=== PATIENT | female | born 1990 | race Hispanic/Latino ===

== ENCOUNTER 2018-03-26 09:44 | Inpatient (IN) | payer MEDICAID ==
--- NOTE | 2018-03-25 09:19 | History and Physical Report ---
History of Present Illness Date of examination: 03/20/18 Date of admission: 03/26/2018 Chief complaint: here for c/s History of present illness: Pt presents for scheduled repeat c/s. All risk, benefits, and alternatives were d/w pt and questions were addressed and answered. EDC Confirmation: 04/02/2018 Gestational Age: 12 1/7 weeks Past History : 2 Term Births: 1 Living Children: 1 Para: 1 Prev : 1 Aborta: 0 # 1 Delivery date: 09/2016 Weeks Gestation: 40 labor: no Delivery type: Hours of labor: 72h Delivery location: [facility] [place] Infant Sex: Female weight: 8#11 Comments: 3 day IOL, c/s 8cm for FTP Past Medical History: Negative Past Medical History Past Surgical History: Past Medical History Surgery (Non-manager inventory control): Abnormal PAP: negative HERBER Exposure: negative Infertility: negative Uterine Anomaly: negative Uterine Surgery (not C/S): negative Other Gynecologic Problems: negative Family Hx: MGM - bipolar, of haemochromatosis Social Hx: , works as teacher no ETOH/Drugs/Smoking Infection History Hx of STD: none HIV Risk Eval: no Hepatitis B Risk Eval: low risk Personal hx. of genital herpes: no Partner hx. of genital herpes: no Rash, Viral, or Febrile illness since last LMP? no Varicella/Chicken Pox Status: Previous Disease Genetic History Congenital Heart Defect: Mom: no Dad: no Bobbi Disease: Mom: no Dad: no Thalassemia Mom: no Dad: no Neural Tube Defect Mom: no Dad: no Down's Syndrome Mom: no Dad: no Khari-Sachs Mom: no Dad: no Sickle Cell Disease/Trait Mom: no Dad: no Hemophilia Mom: no Dad: no Muscular Dystrophy Mom: no Dad: no Cystic Fibrosis Mom: no Dad: no [place] Chorea Mom: no Dad: no Mental Retardation Mom: no Dad: no Fragile X Mom: no Dad: no Other Genetic/Chromosomal Disorder Mom: no Dad: no Child w/other defect Mom: no Dad: no Enviromental Exposures Xray Exposure: no Medication, drug, or alcohol use since LMP: no Chemical/Other Exposure: no Exposure to Cat Liter: no Hx of Parvovirus (Fifth Disease): no 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 Active Medications (reviewed today): None Current Allergies (reviewed today): No known allergies Past History Past Medical History: no pertinent history Past Surgical History: section [employer] History: denies: abnormal PAP smear Social history: no significant social history - Obstetrical History Expected Date of Delivery: 04/02/18 Actual Gestation: 38 Week(s) 6 Day(s) : 2 Para: 1 Number of Living Children: 1 Review of Systems All systems: negative - Physical Exam Cardiovascular: Normal S1, Normal S2 Lungs: Positive: Clear to auscultation, Normal air movement Abdomen: Positive: normal appearance, soft, normal bowel sounds. Negative: distention, tenderness, guarding Genitourinary (Female): Positive: normal external genitalia, normal perenium Extremities: Positive: normal. Negative: tenderness, edema Deep Tendon Reflex Grade: Normal +2 Results All other labs normal. Assessment and Plan - Patient Problems (1) 39 weeks gestation of Status: Acute (2) Previous section Status: Acute Plan to address problem: -admit -prepare for scheduled repeat c/s
[2018-03-26] MEDS ORDERED: LACTATED RINGERS 1,000 ML ONE (10:21)
[2018-03-26] MEDS ORDERED: BICITRA PO ONE (10:24)
[2018-03-26] MEDS ORDERED: REGLAN IV ONE (10:24)
[2018-03-26] MEDS ORDERED: PEPCID IV ONE (10:24)
--- NOTE | 2018-03-26 10:41 | Anesthesia Consultation ---
Anesthesia Consult and Med Hx Date of service: 03/26/18 - Airway Anesthetic Teeth Evaluation: Good ROM Head & Neck: Adequate Mental/Hyoid Distance: Adequate Mallampati Class: Class II Intubation Access Assessment: Probably Good - Pre-Operative Health Status ASA Pre-Surgery Classification: ASA2 Proposed Anesthetic Plan: Epidural, Spinal
[2018-03-26] MEDS ORDERED: DILAUDID IV PRN (10:42)
[2018-03-26] MEDS ORDERED: PHENERGAN PO PRN (10:42)
[2018-03-26] MEDS ORDERED: NARCAN 0.4 MG/1 ML IV PRN (10:42)
[2018-03-26] MEDS ORDERED: BENADRYL IV PRN (10:42)
[2018-03-26] MEDS ORDERED: PHENERGAN PR PRN (10:42)
[2018-03-26] MEDS ORDERED: ZOFRAN IV PRN (10:42)
--- NOTE | 2018-03-26 10:42 | Anesthesia Day of Surgery ---
Anesthesia Day of Surgery - Day of Surgery Patient Examined: Yes Patient H&P Reviewed: Yes Patient is NPO: Yes
[2018-03-26] MEDS ORDERED: TORADOL IV PRN (10:43)
--- NOTE | 2018-03-26 10:48 | Event Note ---
Date: 03/26/18 While getting IV started in triage pt had a vagal response as per RN this was follow by decel to the 60s to 90s for 4 1/2 minutes. Position change and Ox with IV fluid bolusing has corrected the deceleration. Currently tracing is CAT I and reactive. Will proceed with scheduled c/s. Blood work being sent at this time. Provider at bedside at time of resoultion of the deceleration. Pt and s/o states that she normally has a panic with the getting blood drawn. Providers were not aware of this . Pt currently A&O x 4 and is signing consents. All questions were addressed and answered.
[2018-03-26 10:55] LABS: Basophils % (Auto) 0.4 % (0.0-1.8); Eosinophils # (Auto) 0.1 K/mm3 (0.0-0.4); Eosinophils % (Auto) 0.8 % (0.0-4.3); Hematocrit 34.9 % (30.3-42.9); Hemoglobin 11.1 gm/dl (10.1-14.3); Lymphocytes # (Auto) 2.8 K/mm3 (1.2-5.4); Lymphocytes % (Auto) 24.2 % (13.4-35.0); Mean Corpuscular HGB Conc 32 % (30-34); Mean Corpuscular Volume 75 fl (79-97); Monocytes # (Auto) 1.1 K/mm3 (0.0-0.8); Monocytes % (Auto) 9.5 % (0.0-7.3); Platelet Count 239 K/mm3 (140-440); Red Blood Count 4.63 M/mm3 (3.65-5.03); Red Cell Distribution Width 16.7 % (13.2-15.2)
[2018-03-26 10:57] LABS: Mean Corpuscular Hemoglobin 24 pg (28-32)
[2018-03-26] MEDS ORDERED: PITOCin/NS 20 UNIT/1000ML DRIP 20 UNITS/1,000 ML BAG IV SCH (11:00)
[2018-03-26] MEDS ORDERED: SODIUM CHLORIDE FLUSH SYRINGE 10 ML IV NR (11:00)
[2018-03-26] MEDS ORDERED: LACTATED RINGERS 1,000 ML IV SCH (11:00)
[2018-03-26] MEDS ORDERED: ANCEF/STERILE WATER 2 GM/20 ML 2 GM/20 ML SYRINGE IV NR (11:00)
[2018-03-26] MEDS ORDERED: NACL 0.9% IR ONE (12:00)
[2018-03-26] MEDS ORDERED: WATER FOR IRRIG STERILE IR ONE (12:00)
[2018-03-26] MEDS ORDERED: NACL 0.9% 1000 ML 1,000 ML ONE ×2 (12:10→12:46)
[2018-03-26] MEDS ORDERED: NEO SYNEPHRINE/NS Syringe(OR USE) IV ONE (12:11)
[2018-03-26] MEDS ORDERED: MORPHINE ONE (12:27)
[2018-03-26] MEDS ORDERED: XYLOCAINE MPF 2% ONE ×2 (12:27)
[2018-03-26] MEDS ORDERED: MYLICON PO PRN (12:54)
[2018-03-26] MEDS ORDERED: TUCKS PAD TP PRN (12:54)
[2018-03-26] MEDS ORDERED: LANSINOH TP PRN (12:54)
[2018-03-26] MEDS ORDERED: NORCO 5/325 PO PRN (12:54)
[2018-03-26] MEDS ORDERED: D5LR 1,000 ML IV SCH (13:00)
--- NOTE | 2018-03-26 13:00 | Operative Report ---
Operative Report Operative Report: Date of procedure: 03/26/2018 Pre-operative diagnosis: 39 weeks gestation Previous Post-operative diagnosis: Procedure name(s): Repeat low transverse section via Pfannenstiel skin incision Surgeon: Dr. Villa Internet Webmaster: GALEN Anesthesia: Combined spinal epidural EBL: 800 mL Urine output: 100 mL of clear urine out at the end of procedure Fluids: 1400 mL Findings: Liveborn female weight 7 lbs. 15 oz. Apgars of 8 and 9 at one and 5 minutes True knot in umbilical cord Grossly normal fallopian tubes and ovaries bilaterally Normal uterus Approximately 1 cm anterior fibroid noted Indications: Patient presents for repeat section. All risks benefits and alternatives were discussed with the patient. Consents were signed and placed on the chart. Procedure: Patient was taking to the operating room. Patient was then prepped and draped in sterile fashion after anesthesia was found to be adequate. A low transverse skin incision was made with the scalpel through previous incisional scar and carried down to the underlying layer of fascia with the Bovie. The fascia was then incised in the midline and this incision was extended bilaterally with the Bovie. The superior aspect of the fascia was grasped with Corina clamps tented upward and dissected off of the anterior rectus muscles with the scalpel. In similar fashion the inferior aspect of the fascia was grasped with Corina clamps tented upward and dissected off of the anterior rectus muscles. The rectus muscles were then sharply divided in the midline. The peritoneum was identified and entered into sharply. The Haroldo retractor was placed. The bladder blade was placed. A lower transverse uterine incision was made with the scalpel and extended bilaterally with the bandage scissors. Artificial rupture of membranes was performed yielding clear amniotic fluid. The infant's head was then delivered atraumatically. The anterior shoulder and rest of infant delivered without difficulty. The umbilical cord was clamped x2. The cord was cut. The was then placed in sterile bassinet. The cord blood was collected. The placenta was manually extracted in its entirety. The uterus was exteriorized and cleared of all clots and debris. The uterine incision was closed using 0 Vicryl in a running locking fashion. Then 0 Vicryl several [id number] sutures were used along the incision line to secure excellent hemostasis. The posterior cul-de-sac was copiously irrigated. The uterus was returned to the abdomen. The gutters were also irrigated. The Haroldo retractor was removed from the abdomen The anterior rectus muscles were reapproximated using 3-0 Vicryl. The anterior rectus fascia was reapproximated using 0 Vicryl in a running fashion. The subcuticular fat was reapproximated using 2-0 Vicryl in a running fashion. The skin was reapproximated with 4-0 Monocryl in a subcuticular stitch. The patient tolerated the procedure well. Sponge lap and needle counts were all correct x3. Patient was taken to the recovery room awake and in stable condition.
[2018-03-26] MEDS: ANCEF/NS 1 GM/50 ML 1 GM/50 ML BAG IV SCH (20:30)
[2018-03-27 00:36] LABS: Hematocrit 32.4 % (30.3-42.9); Hemoglobin 10.4 gm/dl (10.1-14.3)
[2018-03-27] MEDS: ANCEF/NS 1 GM/50 ML 1 GM/50 ML BAG IV SCH (05:00)
--- NOTE | 2018-03-27 06:35 | Progress Note ---
Assessment and Plan - Patient Problems (1) delivery delivered Onset Date: ~03/26/18 Current Visit: Yes Status: Acute Plan to address problem: Pt awake Getting OOB to toilet. No c/o voiced VSS FF below umb Lochia small Dressing D&I to be removed H&H stable No s/sx of anemia Doing well s/p section. P: continue pathway Advance diet and activity as tolerated. Subjective - Subjective Date of service: 03/27/18 (Pt awake w/o complaint) Principal diagnosis: Day # 1 s/ repeat c/s Patient reports: voiding normally, pain well controlled, ambulating normally [place]: doing well Objective - Vital Signs Latest vital signs: Vital Signs Temp Pulse Resp BP BP Pulse Ox 03/27/18 04:21 98.4 F 88 18 110/71 03/27/18 00:21 98.3 F 96 H 16 113/73 03/26/18 20:00 99 F 95 H 18 113/73 03/26/18 16:30 98.9 F 109 H 20 128/77 94 03/26/18 14:05 80 12 135/64 99 03/26/18 13:55 87 11 L 125/52 100 03/26/18 13:41 86 18 128/63 100 03/26/18 13:15 88 15 121/66 98 03/26/18 13:10 89 14 124/64 98 03/26/18 13:05 85 14 120/63 97 03/26/18 13:00 91 H 16 120/61 97 03/26/18 12:57 97.6 F 97 H 16 106/51 97 03/26/18 11:20 97 H 119/63 97 03/26/18 11:16 93 H 114/66 03/26/18 11:15 94 H 100 03/26/18 11:10 89 100 03/26/18 11:09 98 H 120/62 03/26/18 11:05 80 100 03/26/18 11:04 86 116/60 03/26/18 11:00 84 100 03/26/18 10:55 88 99 03/26/18 10:54 92 H 101/67 03/26/18 10:50 76 99 03/26/18 10:49 89 92/55 03/26/18 10:45 90 99 03/26/18 10:44 85 102/60 03/26/18 10:40 92 H 100 03/26/18 10:39 85 105/66 03/26/18 10:35 79 99 03/26/18 10:34 76 109/67 03/26/18 10:30 77 93 03/26/18 10:29 74 95 03/26/18 10:17 116 H 118/65 Intake and Output 03/26/18 03/26/18 03/27/18 14:59 22:59 06:59 Intake Total 2200 570 480 Output Total 300 1600 1200 Balance 1900 -1030 -720 Intake: IV 2200 50 ANCEF/NS 1 GM/50 ML 1 gm 50 In 50 ml @ 100 mls/hr IV Q8H [facility] Rx#:[id number] Oral 520 Intake, Free Water 480 Output: Urine 300 1600 1200 Indwelling Catheter 1600 1200 Uretheral (Andujar) 100 Other: Total, Intake Amount 520 Total, Output Amount 1600 1200 Weight 230 lb Patient Weight 03/27/18 06:59 Weight 230 lb - Exam Breasts: Present: normal Cardiovascular: Present: Regular rate Lungs: Present: Normal air movement Abdomen: Present: normal appearance, soft Uterus: Present: normal, firm, fundal height below umbilicus Extremities: Present: normal Deep Tendon Reflex Grade: Normal +2 Incision: Present: normal, dry, intact, dressed - Labs Labs: Abnormal lab results 03/26/18 Range/Units 10:40 WBC 11.6 H (4.5-11.0) K/mm3 MCV 75 L (79-97) fl MCH 24 L (28-32) pg RDW 16.7 H (13.2-15.2) % Slope % (Auto) 9.5 H (0.0-7.3) % Slope # 1.1 H (0.0-0.8) K/mm3
[2018-03-27] MEDS ORDERED: BOOSTRIX IM ONE (12:55)
[2018-03-27] MEDS: MOTRIN PO PRN ×2 (13:41→19:52)
[2018-03-28] MEDS: MOTRIN PO PRN (06:30)
--- NOTE | 2018-03-28 08:39 | Discharge Summary ---
Providers - Providers Date of Admission: 03/26/18 09:44 Date of discharge: 03/28/18 (desires d/c home today) Attending physician: YI JACQUES Primary care physician: YI JACQUES Hospitalization Reason for admission: repeat c/s Condition: Good Pertinent studies: postop H&H 10.4/32.4 Procedures: repeat c/s Hospital course: uncomplicated c/s and course Disposition: DC- TO HOME OR SELFCARE - Discharge Diagnoses (1) delivery delivered Status: Acute Core Measure Documentation - Palliative Care Palliative Care/ Comfort Measures: Not Applicable - Core Measures Any of the following diagnoses?: none Exam - Constitutional Vitals: Temp Pulse Resp BP Pulse Ox 98.3 F 96 H 18 115/68 96 03/27/18 23:55 03/27/18 23:55 03/27/18 23:55 03/27/18 23:55 03/27/18 17:13 General appearance: Present: no acute distress, well-nourished - EENT Eyes: Present: PERRL ENT: hearing intact, clear oral mucosa - Neck Neck: Present: supple, normal ROM - Respiratory Respiratory effort: normal Respiratory: bilateral: CTA - Cardiovascular Heart Sounds: Present: S1 & S2. Absent: rub, click - Extremities Extremities: pulses symmetrical, No edema Peripheral Pulses: within normal limits - Abdominal General gastrointestinal: Present: soft, non-tender, non-distended, normal bowel sounds Female genitourinary: Present: normal - Integumentary Integumentary: Present: clear, warm, dry - Musculoskeletal Musculoskeletal: gait normal, strength equal bilaterally - Psychiatric Psychiatric: appropriate mood/affect, intact judgment & insight - Neurologic Neurologic: CNII-XII intact, moves all extremities - Additional findings Additional findings: Lochia scant, incision D&I, fundus firm, VSSAF, H&H stable Plan Activity: no restrictions Diet: regular Wound: open to air, keep clean and dry Follow up with: YI JACQUES MD [Primary Care Provider] - 7 Days (Congratulations! Please call [phone] to schedule your incision check in one week and your visit in 4 weeks. Call for any questions or concerns. )
[2018-03-28 08:53] VITALS: BP 134/87
== END 2018-03-28 13:10 | disposition home or self-care (01) | DRG 766 ==
LOC: LD 09:44 → OB 14:33
PROVIDERS: ADMIT Obstetrics & Gynecology; ATTEND Obstetrics & Gynecology
PROC: 10D00Z1 Extraction of Products of Conception, Low, Open Approach (ICD-10-PCS; principal; 2018-03-26)
PROC: 3E0234Z Introduction of Serum, Toxoid and Vaccine into Muscle, Percutaneous Approach (ICD-10-PCS; 2018-03-27)
DX: O34.211 Maternal care for low transverse scar from previous cesarean delivery (principal); Z3A.39 39 weeks gestation of pregnancy; Z37.0 Single live birth; Z23 Encounter for immunization; O76 Abnormality in fetal heart rate and rhythm complicating labor and delivery; Z81.8 Family history of other mental and behavioral disorders; Z84.89 Family history of other specified conditions; O69.2XX0 Labor and delivery complicated by other cord entanglement, with compression, not applicable or unspecified; O34.13 Maternal care for benign tumor of corpus uteri, third trimester; D25.9 Leiomyoma of uterus, unspecified
CPT/HCPCS: 36415; 85014; 85018; 85025; 86850; 86900; 86901; 99211; C9250; G0463; J0690; J1885; J2270; J2370; J2590; J2765; J7030; J7120